=== PATIENT | male | born 1975 | race Caucasian/White ===

== ENCOUNTER 2016-06-10 12:07 | Emergency (ER) | payer OTHER ==
[2016-06-10 12:20] VITALS: BP 150/107
--- NOTE | 2016-06-10 13:00 | UC ---
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 has had problems since. he is also having numbness and tingling in both arms, it gets worse after his shift at work. - History of Current Complaint Chief Complaint: UCRespiratory Stated Complaint: SINUS CONGESTION Time Seen by Provider: 06/10/16 12:18 Hx Obtained From: Patient Onset/Duration: Gradual Onset, Lasting Weeks, Still Present Timing: Constant Onset Severity: Moderate Current Severity: Moderate Pain Intensity: 0 - no pain - Allergy/Home Medications Allergies/Adverse Reactions: Allergies Allergy/AdvReac Type Severity Reaction Status Date / Time No Known Allergies Allergy Verified 03/31/16 08:07 PMH/Surg Hx/FS Hx/Imm Hx Previously Healthy: Yes Endocrine History Of: Denies: Diabetes, Thyroid Disease Cardiovascular History Of: Reports: Hypertension Denies: Cardiac Disorders, Pacemaker/ICD Respiratory History Of: Denies: COPD, Asthma GI/ History Of: Denies: Ulcer - Surgical History Surgical History: None - Family History Known Family History: Positive: Hypertension, Other - Cancers - include breast - Social History Alcohol Use: Weekly Substance Use Type: None Smoking Status (MU): Light Every Day Tobacco Smoker Type: Cigarettes Amount Used/How Often: 1/3 PPD Have You Smoked in the Last Year: Yes Household Exposure Type: Cigarettes - Immunization History Most Recent Influenza Vaccination: none Review of Systems Constitutional: Negative Skin: Negative Eyes: Negative ENT: Negative, Other - nasal congestion Respiratory: Negative Cardiovascular: Negative Gastrointestinal: Negative Genitourinary: Negative Motor: Negative Neurovascular: Decreased Sensation Musculoskeletal: Arthralgia, Myalgia Neurological: Negative Psychological: Negative All Other Systems Reviewed And Are Negative: Yes Physical Exam Triage Information Reviewed: Yes Appearance: Well-Appearing, Well-Nourished, Pain Distress Vital Signs: Initial Vital Signs Temp 97.6 F 06/10/16 12:14 Pulse 82 06/10/16 12:14 Resp 18 06/10/16 12:14 BP 150/107 06/10/16 12:14 Pulse Ox 100 06/10/16 12:14 Vital Signs Reviewed: Yes Eye Exam: Normal Eyes: Positive: Conjunctiva Clear ENT Exam: Normal ENT: Positive: Hearing grossly normal, Pharynx normal, Nasal congestion, TMs normal Dental Exam: Normal Neck exam: Normal Neck: Positive: Supple, Nontender, No Lymphadenopathy Respiratory Exam: Normal Respiratory: Positive: Chest non-tender, Lungs clear, Normal breath sounds Cardiovascular Exam: Normal Cardiovascular: Positive: RRR, No Murmur, Pulses Normal Abdominal Exam: Normal Abdomen Description: Positive: Nontender, No Organomegaly, Soft Bowel Sounds: Positive: Present Musculoskeletal: Positive: Strength Intact, ROM Limited @ - bilateral shoulder ext and lat ext limited, causes numbness and tingling - omer test, - tinel test. no increase in symptoms with neck movement Neurological Exam: Normal Neurological: Positive: Alert, Muscle Tone Normal Psychological Exam: Normal Skin Exam: Normal Course/Dx - Course Course Of Treatment: Hx obtained, exam performed, education given on HBP encouraged patient to follow up LU with PCP. educated on proper stretching and body mechanics of the shoulders and forearms. Educated on NEti pot use and allergie medications. medications prescribed. - Differential Dx - Multi-Symptom Provider Diagnoses: thoracic outlet syndrome bilateral. nasal congestion Discharge - Discharge Plan Condition: Stable Disposition: HOME Prescriptions: Cetirizine HCl [Zyrtec Allergy] 10 mg PO DAILY #30 tab Patient Education Materials: Thoracic Outlet Syndrome (ED), Allergies (ED) Forms: *Work Release Referrals: Antwon Harvey MD [Primary Care Provider] - Additional Instructions: Stretching videos: [email or web address] Neti pot - this is a great and effective way to clear out the sinuses, the link to a How To video listed below: [email or web address] Your numbness and tingling is due to the muscle pinching off the nerves. it is reversible with proper stretching and body mechanics. Take the allergy medication daily and follow up if symptoms continue even with the use of neti pot and medications.
== END 2016-06-10 13:08 | disposition home or self-care (01) ==
LOC: UCEAST 12:07
DX: G54.0 Brachial plexus disorders (principal); R09.81 Nasal congestion; F17.210 Nicotine dependence, cigarettes, uncomplicated
CPT/HCPCS: 99212; G0463

== ENCOUNTER 2016-11-02 14:40 | Observation (INO) | payer SELFPAY ==
[2016-11-02] MEDS ORDERED: Aspirin Low Dose CHEW TAB* 81 MG PO ONE (14:57)
[2016-11-02 15:19] LABS: Hematocrit 47 % (42-52); Hemoglobin 15.9 g/dl (14.0-18.0); Mean Corpuscular HGB Conc 34 g/dl (31-36); Mean Corpuscular Hemoglobin 29 pg (27-31); Mean Corpuscular Volume 84 fL (80-94); Mean Platelet Volume 7 um3 (7.4-10.4); Red Blood Count 5.57 10^6/ul (4.0-5.4); Red Cell Distribution Width 14 % (10.5-15); White Blood Count 7.3 10^3/ul (3.5-10.8)
--- NOTE | 2016-11-02 15:31 | RAD ---
INDICATION: Syncope COMPARISON: November 22, 2015 TECHNIQUE: An AP portable view obtained at 1500 hours is submitted. FINDINGS: Bones/Soft Tissues: There are no acute bony findings. Cardiomediastinal: The cardiomediastinal silhouette is normal. Lungs: There are no infiltrates. Pleura: There are no pleural effusions. Other: None IMPRESSION: NORMAL CHEST.
[2016-11-02 15:35] LABS: BUN/Creatinine Ratio 10.3 (8-20); EGFR African American 98.9 (>60); EGFR Non-African American 76.9 (>60); Globulin 3.8 g/dL (2-4); Total Bilirubin 0.8 mg/dL (0.2-1.0); Total Protein 8.8 g/dL (6.4-8.9)
[2016-11-02] MEDS ORDERED: NS 0.9% 1000 ML* 1,000 ML IV ONE (16:10)
--- NOTE | 2016-11-02 16:31 | RAD ---
INDICATION: Seizure COMPARISON: CT brain January 24, 2015 TECHNIQUE: Noncontrast axial source images were acquired from the skull base to the vertex. FINDINGS: Ventricles/sulci: The ventricles and cisterns are normal in size and configuration for age. Brain parenchyma: There is no focal parenchymal finding, evidence of intracranial mass, or intracranial mass effect. Intracranial hemorrhage:None. Extra-axial spaces: There are no abnormal extra axial fluid collections or evidence of extra-axial mass. Calvarium: There is no calvarial fracture or other calvarial abnormality. Scalp: There is no evidence of scalp or extracalvarial soft tissue abnormality. Paranasal sinuses/mastoid: The paranasal sinuses and mastoid air cells are clear. Other: None. IMPRESSION: NO ACUTE INTRACRANIAL FINDINGS
[2016-11-02 17:56] LABS: Urine Bacteria Absent (Absent); Urine Bilirubin Negative (Negative); Urine Glucose Negative (Negative); Urine Nitrite Negative (Negative)
[2016-11-02 18:11] LABS: Benzodiazepine Urine Screen None Detected (None Detect)
[2016-11-02] MEDS ORDERED: Metoprolol Tartrate IV* 1 MG/ML 5 ML VIAL IV ONE (20:09)
[2016-11-02] MEDS ORDERED: Ondansetron INJ* 2 MG/ML VIAL IV PRN (20:33)
[2016-11-02] MEDS ORDERED: Acetaminophen TAB* 325 MG PO PRN (20:33)
[2016-11-02] MEDS ORDERED: Thiamine IV* 100 MG, Folic Acid IV* 1 MG, Multiple Vitamin IV ADULT* 10 ML in NS 0.9% 1... IV ONE (20:33)
[2016-11-02] MEDS ORDERED: LORazepam TAB(*) 1 MG PO SCH (21:00)
--- NOTE | 2016-11-03 04:52 | CONS ---
CC: Antwon Harvey MD NEUROLOGY CONSULTATION REPORT: DATE OF CONSULT: 11/02/16 REQUESTING PHYSICIAN: Dr. Mir in the ED. REASON FOR CONSULTATION: Possible seizure. HISTORY OF PRESENT ILLNESS: The patient is a 41-year-old right-handed male who presented with 4 episodes of loss of consciousness or near loss of consciousness during the past 2 days. The first episode happened 2 days ago, on Thursday10/31/16. He was coming back inside after smoking outside the house, he felt lightheaded and that is the last thing he remembers. His heard a thud and when she arrived in a few seconds, he was almost ready to get up. He did not seem confused. There was no loss of bowel or bladder. The second episode happened the next day, on Thursday, when he was in the bathroom and his again heard a thud, she arn to the bathroom and found him face down and unconscious. She called 911 and by the time she was on the phone, the patient came around. The thought it was a good 5 minutes before he regained consciousness, but the patient thinks probably it was less. He saw that his face and clothes were wet , including his face, but does not think that he had lost bladder continence and he was fully clothed at that time. He did not seem to be confused afterwards. By the time EMS arrived, his blood pressure was a bit high, but he refused to go to the hospital. The patient recalls that he went to the bathroom and felt lightheaded, and that is the last thing he remembers. He had 2 more episodes this morning, the first one he was in the kitchen, felt lightheaded, and he went down on his knees but did not loss consciousness. He was able to get up and by the time his arrived, he was relatively okay. He went to the living room and again while he was sitting there, he passed out. He does remember that he felt lightheaded all around these 2 episodes. His daughter mentioned that there was some shaking on his right arm as well when he passed out in the last episode. There was again no bowel or bladder incontinence or tongue biting and no postictal confusion. About an hour after that episode, he also threw up once. The patient mentions that recently, he has been feeling lightheaded frequently, mostly positional, from sitting or lying position to the standing position. He reports being under lots of stress recently. He also has not been eating well in the past few months, for example, in the past week, probably he had eaten only 3 times. He has been drinking at least 6 packs every day and sometimes more. He says that he has been drinking more and more recently because of his ongoing stress. PAST MEDICAL HISTORY: Significant for: 1. Hypertension. However, he has been off blood pressure medications for the past year because of insurance issues. Previously, he has been on hydrochlorothiazide. 2. He recently again has history of anxiety and stress. 3. He has a history of multiple head concussions during football, the last one was about a few years ago (maybe 2007 or 2010- he does not remember exactly) with loss of consciousness. PAST SURGICAL HISTORY: None. SOCIAL HISTORY: The patient currently is unemployed. Previously, he was working in [employer] with repetitive tasks as he mentions. He smokes probably half a pack per day and has recently been increasing smoking. He drinks, as mentioned, probably minimum 6 packs a day. He does not use any drugs. FAMILY HISTORY: Mother has history of hypertension. There is also history of cancer in the family. He is not sure about the health of his siblings. ALLERGIES: No known drug allergies. MEDICATIONS: The patient is currently not on any medications, but as mentioned before, until about a year ago, he was on hydrochlorothiazide for his blood pressure. REVIEW OF SYSTEMS: Complete review of systems was performed and other than what was mentioned above, is positive also for some nausea recently. PHYSICAL EXAMINATION: Blood pressure in the lying position when I saw him first was 174/97 and when I stood him up, the pressures was 168/90. Since he has arrived, the blood pressure has been fluctuating and per records have been 175/110, the highest. Pulse rate is between 80 to 90. Temperature 98.7, O2 sat 100% on room air. The patient is lying on the bed, seems anxious and distressed. Head is normocephalic. He is oriented x3 and speech is fluent. Eyes: He has equal pupils, reactive to light. Extraocular movements are intact. Face is symmetric. Tongue is midline. Palate elevates upwards. Strength is 5/5 throughout. Sensation is intact to light touch and pinprick in the upper and lower extremities. [id number], has a slight tremor, but no dysmetria bilaterally. There is no resting tremor. Deep tendon reflexes are 1 + in the upper extremities and 2+ in the knees and 1+ in the Achilles and are symmetric. Gait is narrow based and steady, but as I mentioned, when he is stood up, he feels lightheaded and slight tremor was seen in his head and upper trunk. Heart has regular rate and rhythm. Lung is clear to auscultation. DIAGNOSTIC STUDIES/LAB DATA: WBC 7.3, hemoglobin 15.9, hematocrit 47, and platelets 381. Sodium 134, potassium 4, carbon dioxide 12, BUN 11, creatinine 1.7, anion gap of 17, lactic acid 2.8, AST 30, ALT 15. Urine has 1+ protein and ketones. Serum alcohol level was 102, otherwise the u-tox is negative. A CT of the head today shows no acute abnormalities. ASSESSMENT AND PLAN: The patient is a 41-year-old male with history of 4 episodes of loss, near loss of consciousness since Thursday. These episodes are preceded by lightheadedness. There was no clear convulsion, other than some right arm shaking witnessed by patient's daughter in the last episode. One of the episodes with loss of consciousness was very short, probably just a few seconds; one of them did not have a complete loss of consciousness; and two of them were associated with longer loss of consciousness for a few minutes per his . The history is more consistent with pre-syncope and syncope other than the loss of consciousness was a bit longer as what is expected in syncope in 2 of the episode. There was no clear loss of bladder or bowel control or post-ictal confusion. I have a very low suspicion for these episodes being a primary seizure problem. Considering the patient's orthostatic symptoms, as well as his uncontrolled blood pressure, this might be in the setting of hypertensive urgency, although while in the ED he did not have any measurement of more than systolic of 220 mmHg and diastolic above 120 mmHg. Recommend cardiac monitoring and control of his blood pressure. If he stays in the hospital, probably an EEG and MRI brain would be helpful to rule out other possibilities, but as I mentioned, I do not have a high suspicion for these episodes being neurologically triggered. He may be also going through some mild alcohol withdrawal at this time with the mild tremor that is seen on exam. Time spent at the bedside at least 60 minutes. [id number]/[facility] #: [id number] GENEVIEVE
[2016-11-03 05:49] LABS: Hematocrit 43 % (42-52); Hemoglobin 14.2 g/dl (14.0-18.0); Mean Corpuscular HGB Conc 33 g/dl (31-36); Mean Corpuscular Hemoglobin 28 pg (27-31); Mean Corpuscular Volume 86 fL (80-94); Mean Platelet Volume 8 um3 (7.4-10.4); Red Blood Count 5.01 10^6/ul (4.0-5.4); Red Cell Distribution Width 14 % (10.5-15); White Blood Count 4.3 10^3/ul (3.5-10.8)
[2016-11-03 06:10] LABS: BUN/Creatinine Ratio 12.8 (8-20); Calcium 9.5 mg/dL (8.6-10.3); EGFR African American 89.3 (>60); EGFR Non-African American 69.4 (>60); HDL Cholesterol 45.7 mg/dL
[2016-11-03 06:42] LABS: Potassium 3.9 mmol/L (3.5-5.0)
--- NOTE | 2016-11-03 07:20 | HP ---
CC: Dr. Harvey* HISTORY AND PHYSICAL: DATE OF ADMISSION: 11/02/16 PRIMARY CARE PROVIDER: Dr. Harvey. ATTENDING PHYSICIAN WHILE IN THE HOSPITAL: Dr. Caleb Lang* (report dictated by Dave Sharma NP) CHIEF COMPLAINT: Syncope. HISTORY OF PRESENT ILLNESS: Mr. Mandujano is a 41-year-old male patient, carries a history of hypertension, he does limit taking his blood pressure meds for the last couple of months due to being unable to afford his medications. He does state that yesterday he had two episodes where he fell, he got up, changing positions felt lightheaded and he fainted, happened twice. He had one episode of vomiting after one of these episodes. His called the ambulance last night and he refused to come in. He denies having any chest pain. He denied having any shortness of breath. Denied having any abdominal pain. Currently, denied any chest pain prior to or after these events. There have been no fevers or chills. No cough. No abdominal discomfort and he did state that he did not hit his head that he can recall. He had an episode today where he fainted and his daughter actually heard the episode according him, but one thing he remembers is they got up, wanted to get off his couch, he felt dizzy, he went down, his daughter called his , and they did note that his left arm was shaking but when he came to he knew where he was, he recognized his , recognized his daughter. They were concerned because it is the fourth time it happened in 2 days and they called 911. There has been no prodrome symptom, the only symptom he had was when change position he felt dizzy. He did start taking his blood pressure meds two months ago and he does state that he has been drinking a little bit more heavily, he is under a lot of stress too as he is going through a separation with his . There was concern, he came in to the ER, was evaluated by Dr. Mir. Because of the syncope, the hospitalist service was asked to evaluate for admission. PAST MEDICAL HISTORY: Significant for hypertension. PAST SURGICAL HISTORY: Denied. ALLERGIES TO MEDICATIONS: No known drug allergies. HOME MEDICATIONS: He is supposed to be taking his hydrochlorothiazide one tablet daily, but he has not taken in 2 months. FAMILY HISTORY: Mother had a history of valvular heart disease, cancer, and hypertension. Father's history is reviewed and is no unknown. He is incarcerated. SOCIAL HISTORY: He is a half a pack a day smoker. He does drink, almost on a daily basis, drinks about a 6-pack at a time when he does drink. He does not use recreational drugs. He is . Surrogate decision maker is his . REVIEW OF SYSTEMS: There is no documented fever. He denied having any significant weight change. There was no double vision. He denies having any ear discharge. There was no rhinorrhea. No sore throat. No thyroid enlargement. Denied having any chest pain. There was no orthopnea. There is no nocturnal dyspnea. There is no abdominal pain. There was one episode of nausea with vomiting. No dysuria. No frequency. There was loss of consciousness. No pruritus. No skin ulcerations. Review of 14 systems completed, all others negative. PHYSICAL EXAMINATION GENERAL: At this time, Mr. Mandujano is a 41-year-old male patient, appears well nourished, well developed. He is sitting in the ER stretcher. He does not appear to be in any acute distress. VITAL SIGNS: Blood pressure 145/72, pulse 90, respirations 20, O2 sats 96%, temperature 99.1. HEENT: Head atraumatic, normocephalic. Eyes: EOMs are intact. Sclerae anicteric and not pale. Throat: Oral mucosa appears to be moist. No oropharyngeal erythema. NECK: Supple. HEART: Sounds S1 and S2. Regular rate and rhythm. No murmur, rubs, or gallops. LUNGS: Clear to auscultation bilaterally. No wheezes, rales, or rhonchi. ABDOMEN: Soft, flat, nontender. Bowel sounds present. EXTREMITIES: Pulses 2+ throughout, was able to move all 4 extremities, 5/5 strength. NEUROLOGIC: The patient is awake, alert, he is oriented x3. Tongue midline. His correspondence analyst were equal. No gross focal deficits. SKIN: Intact. LABORATORY DATA/DIAGNOSTIC STUDIES: Today, revealed WBC of 7.3, RBC of 5.57, hemoglobin of 15.9, hematocrit of 47, platelet count 281. Sodium was 134, potassium 4.0, chloride 97, bicarbonate was 20, BUN was 11, creatinine 1.07. Glucose 77, lactic 2.8, calcium 10.0, total bilirubin 0.8, AST 13, ALT 15, alk phos 35. CK was 183, troponin 0, repeat troponin was 0. Procalcitonin less than 1. Urine showed 1+ protein, 1+ ketone. Toxicology was positive for alcohol 102. He did have a brain CT obtained today and a chest x-ray. The chest x-ray showed normal chest. Brain CT showed no acute intracranial process. There was an EKG, which revealed normal sinus rhythm, rate of 91, no ST elevations or T wave inversions were noted. Old medical records reviewed. ASSESSMENT AND PLAN: Mr. Mandujano is a 41-year-old male patient coming in to the ER today with complaints of syncopal episodes twice today and twice yesterday with no prodrome and just feeling lightheaded particularly with position changes. He will be admitted on observation status for: 1. Syncope, etiology is unclear, but I do think he needs really some telemetry monitoring overnight and echo. I will repeat another troponin. We will check a D- dimer. I do not think he has a PE, but again if it does not resolve, I will get a CTA. We will go ahead and get an echo in the morning, telemetry, orthostatics blood pressures, and we will continue to follow. 2. Hypertension, at this point blood pressure is in the 140s, we will monitor this. If it remains persistently elevated we can consider starting him back on his hydrochlorothiazide or some Norvasc. 3. Social issues, I did refer to place a consult with social work given the fact he is going through a separation. He is under stress, in addition to this he is unable to afford his medication. 4. DVT prophylaxis: He is at low risk. We will place him on SCDs. 5. Code status: Full code. 6. ETOH use: I did place him on the [place] protocol. I am going to give him a banana bag. TIME SPENT: Time spent on the admission was approximately 60 minutes, greater than half the time was spent [id number] with the patient obtaining my history and physical, other half of the time was spent going over the plan of care with the patient and implementing the plan of care. I did discuss the plan of care with my attending, Dr. Lang, he is in agreement. DAVE SHARMA NP [id number]/[facility] #: [id number] GENEVIEVE
[2016-11-03 08:35] VITALS: BP 149/90
[2016-11-03] MEDS ORDERED: amLODIPine TAB* 5 MG PO SCH (09:00)
[2016-11-03] MEDS ORDERED: Thiamine TAB* 100 MG TAB PO SCH (09:00)
[2016-11-03] MEDS ORDERED: Folic Acid TAB* 1 MG PO SCH (09:00)
[2016-11-03] MEDS ORDERED: Multivitamins/Minerals TAB PO SCH (09:00)
--- NOTE | 2016-11-03 10:48 | RAD ---
HISTORY: Recurrent syncope COMPARISONS: CT dated November 02, 2016 TECHNIQUE: The following sequences were obtained of the head: Sagittal T1-weighted images, axial T2-weighted images, axial FLAIR images, axial susceptibility weighted images, axial T1-weighted images. Additionally, axial diffusion-weighted images were obtained with calculated apparent diffusion coefficients. FINDINGS: HEMORRHAGE/INFARCT: There is no hemorrhage or acute infarct. MASSES/SHIFT: There is no mass or shift. EXTRA-AXIAL SPACES/MENINGES: There are no extra-axial fluid collections. SULCI AND VENTRICLES: The sulci and ventricles are normal in size and position for the patient's stated age. CEREBRUM: There are no focal parenchymal abnormalities. BRAINSTEM: There are no focal parenchymal abnormalities. CEREBELLUM: There are no focal parenchymal abnormalities. The cerebellar tonsils are normal in size and position. SELLA: The sella is normal. PINEAL: The pineal region is clear. CP ANGLE/TEMPORAL BONES: The labyrinthine structures are grossly normal. VESSELS: Normal flow-voids are noted within the visualized vertebral vasculature. DIFFUSION ABNORMALITIES: There are no diffusion abnormalities. PARANASAL SINUSES/MASTOIDS: The paranasal sinuses are clear. ORBITS: The orbits are unremarkable. BONES AND SOFT TISSUE: No bone or soft tissue abnormalities are noted. OTHER: None IMPRESSION: NORMAL BRAIN
--- NOTE | 2016-11-03 13:35 | PN ---
PROGRESS NOTE: DATE OF SERVICE/DICTATION: 11/03/16 - ROOM #443 HISTORY OF PRESENT ILLNESS: Roverto Mandujano is a 41-year-old gentleman admitted to hospital after 4 episodes of loss of consciousness starting on January 31. This occurs in the setting of excessive alcohol intake and decreased p.o. intake. He was seen by Dr. Schroeder in consultation. On today's visit, Mr. Mandujano indicates that he has had no further episodes, he feels back to his baseline. He admits that he drinks more beer than water. He estimates about a 6-pack approximately 3 to 4 days a week and indicates he would drink more if he could. He indicates that he drank more in the past and he first started drinking at age 17, when his stepfather had alcohol around the house. He admits he has a problem and would like to stop drinking. He is yet to go to Alcoholics Anonymous. He had thought about going through rehab, but did not have insurance. He has had an MRI of the brain and we discussed the results on today's visit, no pathology was noted. EEG was being set up at the time of visit. MEDICATIONS: Include: 1. Acetaminophen 650 mg p.o. q.4 hours p.r.n. fever or pain. 2. Norvasc 5 mg p.o. q. day. 3. Folate 1 mg p.o. q. day. 4. Ativan per [facility] protocol. 5. Multivitamin 1 tablet p.o. q. day. 6. Ondansetron 4 mg IV q.6 hours p.r.n. nausea. 7. Thiamine 100 mg p.o. q. day. PHYSICAL EXAMINATION: Today, Mr. Mandujano's vitals include blood pressure of 149/90; pulse of 75, regular; respiratory rate 16; saturation 98%; temperature 98.2 degrees oral. He had a regular cardiac rhythm. His lungs were clear to auscultation. There was no evidence of peripheral edema or petechiae. No bruises were noted. He was awake, alert, articulate. He had full extraocular movements with no nystagmus. His facial expression was symmetric. There was no dysarthria. There was no pronator drift. He gave good strength in his arms and legs. Normal emesic-cd-okpx and nyio-pq-gxkd movements. Reflexes were 2+ and symmetric in the arms and legs. Gait could not be tested; he was hooked up to EEG. DIAGNOSTIC STUDIES: Includes MRI of the brain, which was reviewed directly and did not show any significant pathology. IMPRESSION AND PLAN: Mr. Roverto Mandujano is a 41-year-old gentleman with repeat episodes of loss of consciousness in the setting of significant alcohol intake and decreased p.o. intake. He is also been off his hypertensive medications due to lack of insurance. He had seen Dr. Harvey before in the past. At this time, no clear history was obtained to suggest epilepsy. We are checking EEG to double check, and I will review that tracing as soon as it is complete. His MRI is negative. Most likely his loss of consciousness was related to his alcohol intake and decreased p.o. intake. He has been restarted on medications for blood pressure. Mr. Mandujano indicates that he does have an alcohol problem. It is good to see that he realizes this and I have talked with him about the importance of Alcoholics Anonymous, the damage that alcohol can do to many organs including brain and peripheral nerves. Clearly this has been an issue for him in his life and affecting him in many ways. Social Work is to see him regarding opportunities for him in alcohol counseling. I spoke to Dr. Mayfield, who has already spoken directly to Social Work regarding the situation. As long as his EEG is negative, no other neurologic workup is needed at this time. Emphatically, the patient has been advised to completely stop drinking alcohol. [id number]/[facility] #: [id number] GENEVIEVE
--- NOTE | 2016-11-03 14:32 | ECHO ---
Patient: RASTA TURNER [facility] Rec#: [id number] : 1975 Date: 11/03/2016 Age: 41y Height: 185.4 cm / 73.0 in Weight: 99.8 kg / 220.0 lbs Sex: M BSA: 2.2 Room#: [facility] Admit Date#: 11/02/2016 Type: Inpatient Referring: Jayson Sharma NP Reading: Jeferson Martin MD Paper Colorer: Sis Zapien RN RDCS CC: Antwon Harvey MD Transthoracic Echocardiogram Indication: Syncope BP: 154/95 HR: 77 Rhythm: NSR Findings History: HTN, anxiety, smoker Technical Comments: The study quality is fair. The study is technically limited due to patient body habitus. The study is technically limited due to the patient's smoking history. Completed at 1005. Left Ventricle: The left ventricular chamber size is normal. Septal wall hypertrophy is observed. Global left ventricular wall motion and contractility are within normal limits. There is normal left ventricular systolic function. The estimated ejection fraction is 55-60%. There is no consistent Doppler evidence of clinically significant diastolic dysfunction. Left Atrium: The left atrial chamber size is normal. Right Ventricle: The right ventricular chamber size and systolic function are within normal limits. Right Atrium: The right atrial cavity size is normal. Aortic Valve: The aortic valve is trileaflet. The aortic valve leaflets are mildly thickened. There is no evidence of aortic regurgitation. There is no evidence of aortic stenosis. Mitral Valve: The mitral valve leaflets are mildly thickened. There is no evidence of mitral regurgitation. There is no evidence of mitral stenosis. Tricuspid Valve: The tricuspid valve leaflets are normal. There is trace tricuspid regurgitation. Unable to estimate the right ventricular systolic pressure. Pulmonic Valve: The pulmonic valve appears normal. There is a trace pulmonic regurgitation. There is no pulmonic stenosis. Pericardium: There is no significant pericardial effusion. A pericardial fat pad is visualized. Aorta: There is no dilatation of the ascending aorta. There is no dilatation of the aortic arch. There is mild dilatation of the aortic root. Pulmonary Artery: The main pulmonary artery appears normal. Venous: The inferior vena cava is not visualized. Conclusions Global left ventricular wall motion and contractility are within normal limits. There is normal left ventricular systolic function. The estimated ejection fraction is 55-60%. The right ventricular chamber size and systolic function are within normal limits. The aortic valve leaflets are mildly thickened. There is no evidence of aortic regurgitation. There is no evidence of mitral regurgitation. There is trace tricuspid regurgitation. Unable to estimate the right ventricular systolic pressure. There is no significant pericardial effusion. Measurements Name Value Normal Range RVDdMajor (2D) 4.2 cm (2.2 - 4.4) RAd ISD 4CH 4.7 cm (3.4 - 4.9) RA (A4C)W 4.1 cm (2.9 - 4.6) IVSd (2D) 1.3 cm (0.6 - 1) LVPWd (2D) 0.9 cm (0.6 - 1) LVIDd (2D) 4.7 cm (3.6 - 5.4) LVIDs (2D) 3 cm - LV FS (2D) 36 % (25 - 45) Aortic Annulus 2.4 cm (1.4 - 2.6) Ao root diameter (2D) 3.6 cm (2.1 - 3.5) Ascending Ao 3 cm (2.1 - 3.4) Aortic arch 2.9 cm (1.8 - 3.4) LA dimension (AP) 2D 3 cm (2.3 - 3.8) LAd ISD 4CH 4.5 cm (2.9 - 5.3) LA ISD 4CH W 4 cm (2.5 - 4.5) Name Value Normal Range LA ESV SP 4CH (A/L) 43 ml - LA ESV SP 2CH (A/L) 43 ml - LA ESV BP (A/L) 43 ml - LA ESV BP (A/L) index 19.1 ml/m2 - LA ESV SP 4CH (MOD) 41 ml - LA ESV SP 2CH (MOD) 40 ml - Name Value Normal Range MV E-wave Vmax 0.73 m/sec - MV deceleration time 277 msec - MV A-wave Vmax 0.72 m/sec - MV E:A ratio 1 ratio - LV septal e' Vmax 0.09 m/sec - LV lateral e' Vmax 0.13 m/sec - LV E:e' septal ratio 8.1 ratio - LV E:e' lateral ratio 5.6 ratio - Name Value Normal Range AV Vmax 1.5 m/sec - AV VTI 28.4 cm - AV peak gradient 9 mmHg - AV mean gradient 5.7 mmHg - LVOT Vmax 1.3 m/sec - LVOT VTI 24 cm - LVOT peak gradient 6.4 mmHg - LVOT mean gradient 3.3 mmHg - ALYSSA Vmax 0.88 m/sec - Name Value Normal Range PV Vmax 0.89 m/sec -
--- NOTE | 2016-11-04 05:34 | EEG ---
ELECTROENCEPHALOGRAPHY: DATE OF STUDY: CLINICAL PROBLEM: Mr. Roverto Mandujano is a 41-year-old gentleman who was admitted with 4 episodes of loss of consciousness with prodrome of lightheadedness. EEG was requested to look for epileptifo rm activity. REPORT: This was a 16-channel EEG. In the beginning of the record, there was a posterior dominant 10 Hz alpha rhythm, which was symmetric and attenuated with eye opening. As the record continued, the background rhythm remained symmetric. Intermittently, there was moveme nt artifact. Before and after the movement artifact, there was no change in the background rhythm. With time, there was fragmentation of the alpha rhythm with drowsiness and eventually evidence of st age 2 sleep with vertex waves. Throughout the record, there was no significant asymmetry to the background rhythm. There was no janes dence of sharp wave activity. CLINICAL IMPRESSION: This is a normal awake and asleep EEG. There was no evidence of epileptiform activity. [id number]/[facility] #: [id number]
--- NOTE | 2016-11-04 08:56 | DS ---
CC: Dr. Harvey; Dr. Dominique; Dr. Schroeder DISCHARGE SUMMARY: DATE OF ADMISSION: 11/02/16 DATE OF DISCHARGE: 11/03/16 PRIMARY CARE PHYSICIAN: Dr. Harvey DISCHARGE DIAGNOSIS: Recurrent syncope, most likely to alcohol use and not eating well in patient with mild hypoglycemia on evaluation initially. SECONDARY DIAGNOSES: 1. Alcoholism. 2. Hypertension. MEDICATIONS ON DISCHARGE: Norvasc 5 mg p.o. daily. LABORATORY DATA AND STUDIES PERFORMED DURING THE HOSPITAL STAY: Included: On ; white blood cell count of 4.3, hemoglobin of 14.2, hematocrit of 42, and platelets of 226. D-dimer was below 200 on presentation. Sodium was 135, potassium 3.9, chloride 98, carbon dioxide 24, BUN 15, creatinine 1.17, glucose with a level of 77 on presentation. The patient's troponin was negative on admission. Urine drug screen was unremarkable at admission with an alcohol level of 102. Brain MRI, impression: "Normal brain." Transesophageal echocardiogram obtained on 11/02/16 showed EF of 55% to 60% with left ventricular wall motion and contractility to be within normal limits. There was trace tricuspid regurgitation and no significant pericardial effusion. CONSULTATIONS DURING THE HOSPITAL STAY: Included Dr. Schroeder and Dr. Marc from Neurology. HOSPITALIZATION COURSE: Mr. Roverto Mandujano is a 41-year-old male with history of alcoholism. He had been drinking ever since he turned 17, approximately 6 to 12 beers a day. He presented to the hospital on 11/02/16 with recurrent episodes of syncope for the past couple of days. He was noted to have glucose level of 77 on presentation, alcohol level of 102. With recurrent episodes of syncope, Neurology was consulted, MRI of the brain , which was unremarkable. The patient's transesophageal echocardiogram was also unremarkable and his telemetry monitoring for 24 hours showed normal sinus rhythm. Prior to discharge, the patient received counseling in regards to stopping alcohol use and good nutrition. The patient stated that he had not been eating for the past several days and he had been drinking beers only. He stated that he is currently not working and he is in the process of divorce, but still living with his spouse. The patient was discharged. The patient is awaiting social work consult in regards to acquiring insurance coverage and alcoholism. PHYSICAL EXAMINATION: At the time of discharge, blood pressure of 149/90, heart rate of 75, respiratory rate 15, oxygen saturation 98% on room air, temperature of 98.2. General: This is a pleasant 41-year-old male who is in no acute distress. Alert, awake and oriented x3. HEENT: Head is atraumatic, normocephalic. Eyes: Pupils equal and reactive to light and accommodation. Oropharynx clear. Mucosa moist. Neck: Supple. No JVD. No bruits bilaterally. Cardiovascular: Regular rate and rhythm. No murmurs. Respiratory: Clear to auscultation bilaterally. Abdomen: Soft, nontender. Bowel sounds present in all 4 quadrants. Extremities: There is no edema. Pulses +2 bilaterally. No clubbing or cyanosis. Neuro evaluation: Speech clear. Cranial nerves II through XII grossly intact. Motor strength is 5/5 bilaterally. Please note that prior to each syncopal event in the past 2 days, the patient did have prodromal symptoms of feeling lightheaded and weak. The patient recommended to follow up with Dr. Harvey in approximately 4 to 7 days. [id number]/[facility] #: [id number] [facility] CENTERJune
--- NOTE | 2016-11-09 23:23 | ED ---
Gary Tineo Auryana, scribed for John Mir MD on 11/02/16 at 1626 . Syncope/Near Syncope - HPI Summary HPI Summary: 41 year old male presents multiple episodes of syncope over the last 3 days. reports that he has had 2 syncopal episodes today - total of 4 over the last 3 days. reports that after these episodes he typically takes a few minutes to wake up. also reports that her daughter reports abnormal arm movement. Yesterday's episode was accompanied by Urinary incontinence. He reports feeling weak, dizzy, and diaphoretic-then remembers getting up from the floor. He reports changes in appetite, decreased sleep, and eating habits due to stress - recent separation from and kids. He denies any fever, chills, CP, SOB, HINTON, or any SI. He has had prior episodes of lightheadedness and dizziness but no syncope. PMHx is significant for HTN. No family history of seizures. SHx is significant for alcohol (2-3 drinks a day - big cans), but denies tobacco and recreational drug use. - History Of Current Complaint Chief Complaint: EDSyncope Time Seen by Provider: 11/02/16 14:53 Hx Obtained From: Patient Onset/Duration: Gradual Onset, Lasting Days - 3, Still Present Timing: Constant Context: Unwitnessed, Witnessed, Loss Of Consciousness Activity At Onset: Other - daily activities Alleviating Factor(s): Spontaneous Resolution Associated Signs And Symptoms: Diaphoresis, Dizzy, Other - weak Related History: Similar Episode/Dx as - no history of seizures Frequency: Episodes x___ - 4, Episodes Lasting ____ (in Mins/Days/Weeks/Years) - 5 minutes, Ongoing Incidents Of Syncope For (in Mins/Days/Weeks/Years) - 4 episodes in the last 3 days - Allergies/Home Medications Allergies/Adverse Reactions: Allergies Allergy/AdvReac Type Severity Reaction Status Date / Time No Known Allergies Allergy Verified 03/31/16 08:07 PMH/Surg Hx/FS Hx/Imm Hx Endocrine/Hematology History: Denies: Hx Diabetes, Hx Thyroid Disease Cardiovascular History: Reports: Hx Hypertension Denies: Hx Pacemaker/ICD Respiratory History: Denies: Hx Asthma, Hx Chronic Obstructive Pulmonary Disease (COPD) GI History: Denies: Hx Ulcer Sensory History: Denies: Hx Hearing Aid Psychiatric History: Denies: Hx Eating Disorder, Hx Panic Disorder, Hx of Violent Episodes Against Others Infectious Disease History: No Infectious Disease History: Denies: Hx Hepatitis, Hx Human Immunodeficiency Virus (HIV), History Other Infectious Disease, Traveled Outside the [place] in Last 30 Days - Family History Known Family History: Positive: Hypertension, Other - Cancers - include breast - Social History Lives: With Family Alcohol Use: Weekly Substance Use Type: Reports: None Hx Tobacco Use: Yes Smoking Status (MU): Light Every Day Tobacco Smoker Type: Cigarettes Amount Used/How Often: 1/3 PPD Have You Smoked in the Last Year: Yes Review of Systems Positive: Skin Diaphoresis, Other - DIZZINESS AND WEAKNESS BEFORE THE EPISODES. Negative: Fever, Chills Eyes: Negative Negative: Erythema ENT: Negative Negative: Sore Throat Cardiovascular: Negative Negative: Chest Pain Respiratory: Negative Negative: Shortness Of Breath, Cough Gastrointestinal: Negative Negative: Abdominal Pain, Vomiting, Nausea Positive: incontinence - WITH PREVIOUS SYNCOPE . Negative: dysuria, hematuria Musculoskeletal: Negative Negative: Myalgia, Edema Skin: Negative Negative: Rash Positive: Syncope Psychological: Normal All Other Systems Reviewed And Are Negative: Yes Physical Exam - Summary Physical Exam Summary: Constitutional: Well-developed, Well-nourished, Alert. (-) Distressed Skin: Warm, Dry HENT: Normocephalic; Atraumatic Eyes: Conjunctiva normal Neck: Musculoskeletal ROM normal neck. (-) JVD, (-) Stridor, (-) Tracheal deviation Cardio: Rhythm regular, rate normal, Heart sounds normal; Intact distal pulses; The pedal pulses are 2+ and symmetric. Radial pulses are 2+ and symmetric. (-) Murmur Pulmonary/Chest wall: Effort normal. (-) Respiratory distress, (-) Wheezes, (-) Rales Abd: Soft, (-) Tenderness, (-) Distension, (-) Guarding, (-) Rebound Musculoskeletal: (-) Edema Lymph: (-) Cervical adenopathy Neuro: Alert, Oriented x3 Psych: Mood and affect Normal Triage Information Reviewed: Yes Vital Signs On Initial Exam: Initial Vitals Temp Pulse Resp BP Pulse Ox 99.1 F 96 18 158/106 96 11/02/16 14:40 11/02/16 14:40 11/02/16 14:40 11/02/16 14:40 11/02/16 14:40 Vital Signs Reviewed: Yes Diagnostics - Vital Signs Vital Signs Temp Pulse Resp BP Pulse Ox 11/02/16 14:40 99.1 F 96 18 158/106 96 - Laboratory Result Diagrams: 11/02/16 15:11 11/02/16 15:11 Lab Statement: Any lab studies that have been ordered have been reviewed, and results considered in the medical decision making process. - Radiology CXR Xray Interpretation: No Acute Changes Radiology Interpretation Completed By: Radiologist - CT BRAIN CT Interpretation: No Acute Changes CT Interpretation Completed By: Radiologist - EKG 15:06 EKG Interpretation: Normal EKG, no STEMI Re-Evaluation - Re-Evaluation First Eval Re-Evaluation Time: 18:55 - discussed recommendations of Dr. Schroeder Comment: Patient refused both EEG nad MRI . Juliet also admits to drinking on the days that he had a seizure - thus I do not suspect alcohol withdrawal. Second Eval Re-Evaluation Time: 20:02 - WILL LET ED PHYSICIAN KNOW IF HE IS WILL TO STAY Course/Dx Course Of Treatment: 41 year old male presents multiple episodes of syncope over the last 3 days. reports that he has had 2 syncopal episodes today - total of 4 over the last 3 days. reports that after these episodes he typically takes a few minutes to wake up. also reports that her daughter reports abnormal arm movement. Yesterday's episode was accompanied by Urinary incontinence. He reports feeling weak, dizzy, and diaphoretic-then remembers getting up from the floor. He reports changes in appetite, decreased sleep, and eating habits due to stress - recent separation from and kids. He denies any fever, chills, CP, SOB, HINTON, or any SI. He has had prior episodes of lightheadedness and dizziness but no syncope. PMHx is significant for HTN. No family history of seizures. SHx is significant for alcohol (2-3 drinks a day - big cans), but denies tobacco and recreational drug use. Test results WNL except RBC 5.57, ANION GAP 17, LACTIC ACID 2.8, troponin 0.00. NML LFTs. Serum ETOH 102. UA 1+ protein, 1+ ketones. CXR- NAD. EKG - nml ekg- no stemi. CT brain - NAD. Consult to Dr. Schroeder (18:48)- recommended EEG and MRI. Patient refused both EEG and MRI . Juliet also admits to drinking on the days that he had a seizure - thus I do not suspect alcohol withdrawal. DDx: seizures , pseudoseizures, ptyosis, drug abuse, alcohol abuse, electrolyte abnormality. DR. IBRAHIM (08:12) HOSPITALIST AGREES TO SEE PATIENT IN ED- ADMIT TO [facility] [place]. DX: SYNCOPE, SYNCOPAL SEIZURE, ALCOHOLISM - Diagnoses Differential Diagnosis/HQI/PQRI: Positive: Other - DDx: seizures, pseudoseizures , ptyosis, drug abuse, alcohol abuse, electrolyte abnormality Provider Diagnoses: Syncopal seizure, Syncope, Alcoholism - Physician Notifications Discussed Care of Patient With: Dillon Schroeder Time Discussed With Above Provider: 18:49 - recommended EEG and MRI Discharge - Discharge Plan Condition: Stable Disposition: ADMITTED TO [facility] The documentation as recorded by the Gary nunn Auryana accurately reflects the service I personally performed and the decisions made by me, John Mir MD.
== END 2016-11-03 13:27 | disposition home or self-care (01) ==
LOC: ED 14:40 → MEDTELE 20:58
PROVIDERS: ADMIT Hospitalist; ATTEND Internal Medicine
DX: R55 Syncope and collapse (principal); E16.2 Hypoglycemia, unspecified; F10.20 Alcohol dependence, uncomplicated; I10 Essential (primary) hypertension; F17.210 Nicotine dependence, cigarettes, uncomplicated
CPT/HCPCS: 36415; 70450; 70551; 71010; 80048; 80053; 80061; 80307; 80320; 81003; 81015; 82550; 83036; 83605; 84145; 84484; 85025; 85379; 93005; 93306; 95816; 96365; 96366; 96375; 99285; A9270-GY; G0378; G0480

== ENCOUNTER 2017-07-19 12:01 | Emergency (ER) | payer MEDICAID, OTHER ==
[2017-07-19 13:14] VITALS: BP 155/110
--- NOTE | 2017-07-19 13:25 | UC ---
FLU HPI - HPI Summary HPI Summary: His son came home from college this week with flulike symptoms seen his primary care doctor on diagnosed with the flu Mr. Mandujano came down the symptoms on Thursday night Thursday morning of body aches fevers chills sore throat cough. Mr. Mandujano states he has not taken his blood pressure medicine for the past 3 days until this morning when he just took 1 hour ago prior to arrival to the urgent care - History of Current Complaint Chief Complaint: UCGeneralIllness Stated Complaint: FLU SYMPTOMS Time Seen by Provider: 07/19/17 13:02 Hx Obtained From: Patient Onset/Duration: Sudden Onset, Lasting Days - 1-2, Still Present Severity Currently: Mild Severity Initially: Mild Pain Intensity: 3 Pain Scale Used: 0-10 Numeric Associated Signs & Symptoms: Positive: Fever, Myalgia, Cough, Sore Throat, Nasal Congestion, Headache Related Hx: Possible Flu/Infectious Exposure - Allergy/Home Medications Allergies/Adverse Reactions: Allergies Allergy/AdvReac Type Severity Reaction Status Date / Time No Known Allergies Allergy Verified 07/19/17 13:00 Home Medications: Home Medications Atorvastatin* [Lipitor*] 10 mg PO DAILY 07/19/17 [History Confirmed 07/19/17] Blood Pressure Med 07/19/17 [History] PMH/Surg Hx/FS Hx/Imm Hx Previously Healthy: No Endocrine History: Dyslipidemia Cardiovascular History: Hypertension - Surgical History Surgical History: None - Family History Known Family History: Positive: Hypertension, Other - Cancers - include breast - Social History Occupation: Employed Full-time - Patient last started a job at [employer] on Thursday in 2 days Alcohol Use: Weekly Substance Use Type: None Smoking Status (MU): Heavy Every Day Tobacco Smoker Type: Cigarettes Amount Used/How Often: 1 PPD Have You Smoked in the Last Year: Yes Household Exposure Type: Cigarettes - Immunization History Most Recent Influenza Vaccination: no flu vaccine in 2016 2017 Review of Systems Constitutional: Fever, Chills, Fatigue Skin: Negative Eyes: Negative ENT: Sore Throat, Ear Ache, Nasal Discharge, Sinus Congestion Respiratory: Cough Cardiovascular: Negative Gastrointestinal: Negative Genitourinary: Negative Motor: Negative Neurovascular: Negative Musculoskeletal: Myalgia Neurological: Headache Psychological: Negative Is Patient Immunocompromised?: No All Other Systems Reviewed And Are Negative: Yes Physical Exam Triage Information Reviewed: Yes Appearance: No Pain Distress - Mild, Well-Nourished, Ill-Appearing - Mild Vital Signs: Initial Vital Signs Temp 97.5 F 07/19/17 13:07 Pulse 96 07/19/17 13:07 Resp 16 07/19/17 13:07 BP 155/110 07/19/17 13:07 Pulse Ox 99 07/19/17 13:07 Vital Signs Reviewed: Yes Eye Exam: Normal Eyes: Positive: Conjunctiva Clear ENT Exam: Normal ENT: Positive: Normal ENT inspection, Hearing grossly normal, Pharynx normal, Nasal congestion, TMs normal, Uvula midline. Negative: Trismus, Muffled voice, Hoarse voice, Dental tenderness, Sinus tenderness Dental Exam: Normal Neck exam: Normal Neck: Positive: Supple, Nontender Respiratory Exam: Normal Respiratory: Positive: Chest non-tender, Lungs clear, Normal breath sounds, No respiratory distress, No accessory muscle use Cardiovascular Exam: Normal Cardiovascular: Positive: RRR, No Murmur, Pulses Normal, Brisk Capillary Refill Musculoskeletal Exam: Normal Musculoskeletal: Positive: Strength Intact, ROM Intact, No Edema Neurological Exam: Normal Neurological: Positive: Alert, Muscle Tone Normal Psychological Exam: Normal Skin Exam: Normal Diagnostics - Laboratory Diagnostic Studies Completed/Ordered: Rapid strep is negative influenza A is negative influenza B is negative Flu Course/Dx - Course Course Of Treatment: Rest increase fluids Tylenol ibuprofen [id number] cough and cold medicines for symptom relief follow with primary care doctor should symptoms not improve to the emergency department should symptoms worsen recheck blood pressure with primary care doctor next week take blood pressure medicine regularly as prescribed - Differential Dx/Diagnosis Provider Diagnoses: Hypertension in poor control, viral illness upper respiratory infection Discharge - Discharge Plan Condition: Stable Disposition: HOME Patient Education Materials: Hypertension (ED), Viral Syndrome (ED), Upper Respiratory Infection (ED) Referrals: [facility] [place] [facility]ERR[facility] [Outside] - 1 Week
== END 2017-07-19 13:45 | disposition home or self-care (01) ==
LOC: UCEAST 12:01
DX: J06.9 Acute upper respiratory infection, unspecified (principal); I10 Essential (primary) hypertension; F17.210 Nicotine dependence, cigarettes, uncomplicated
CPT/HCPCS: 87502; 87651; 99211; G0463

== ENCOUNTER 2018-06-11 22:38 | Emergency (ER) | payer OTHER ==
--- NOTE | 2018-06-12 01:24 | ED ---
Lower Extremity - HPI Summary HPI Summary: Vision complains of left great toe pain and swelling after stubbing it on stretcher yesterday. Patient denies any other pain, injury or symptoms. Medical history is none. Denies history of gout. - History of Current Complaint Chief Complaint: EDExtremityLower Stated Complaint: LT FT INJURY Time Seen by Provider: 06/12/18 01:03 Hx Obtained From: Patient Mechanism Of Injury: Blunt Trauma Onset of Pain: Immediate, Hours Onset/Duration: Hours Severity Initially: Moderate Severity Currently: Moderate Pain Intensity: 6 Pain Scale Used: 0-10 Numeric Timing: Constant Location: Is Discrete @ Character Of Pain: Aching, Throbbing Associated Signs And Symptoms: Positive: Swelling, Redness Aggravating Factor(s): Standing, Ambulation, Movement, Weight Bearing Alleviating Factor(s): Rest Able to Bear Weight: Yes - Allergies/Home Medications Allergies/Adverse Reactions: Allergies Allergy/AdvReac Type Severity Reaction Status Date / Time No Known Allergies Allergy Verified 08/06/17 14:01 PMH/Surg Hx/FS Hx/Imm Hx Endocrine/Hematology History: Denies: Hx Diabetes, Hx Thyroid Disease Cardiovascular History: Reports: Hx Hypertension Denies: Hx Pacemaker/ICD Respiratory History: Denies: Hx Asthma, Hx Chronic Obstructive Pulmonary Disease (COPD) GI History: Denies: Hx Ulcer History: Denies: Hx Renal Disease Sensory History: Reports: Hx Contacts or Glasses Denies: Hx Hearing Aid Opthamlomology History: Reports: Hx Contacts or Glasses Psychiatric History: Denies: Hx Eating Disorder, Hx Panic Disorder, Hx of Violent Episodes Against Others - Surgical History Surgery Procedure, Year, and Place: DENIES Infectious Disease History: No Infectious Disease History: Denies: Hx Hepatitis, Hx Human Immunodeficiency Virus (HIV), History Other Infectious Disease, Traveled Outside the [place] in Last 30 Days - Family History Known Family History: Positive: Hypertension, Other - Cancers - include breast - Social History Alcohol Use: Weekly Substance Use Type: Reports: None Hx Tobacco Use: Yes Smoking Status (MU): Heavy Every Day Tobacco Smoker Type: Cigarettes Amount Used/How Often: 1 PPD Have You Smoked in the Last Year: Yes Review of Systems Constitutional: Negative Eyes: Negative ENT: Negative Cardiovascular: Negative Respiratory: Negative Gastrointestinal: Negative Genitourinary: Negative Musculoskeletal: Other Skin: Negative Neurological: Negative Psychological: Normal All Other Systems Reviewed And Are Negative: Yes Physical Exam - Summary Physical Exam Summary: Swelling to left great toe, mild erythema. No ecchymosis, extra warmth, deformity noted. Patient able to flex toe with pain. Mild tenderness with palpation of DIP joint. PMS intact. No evidence of gout. No history of gout. Triage Information Reviewed: Yes Vital Signs On Initial Exam: Initial Vitals Temp Pulse Resp BP Pulse Ox 97.8 F 89 20 172/112 96 06/11/18 22:43 06/11/18 22:43 06/11/18 22:43 06/11/18 22:43 06/11/18 22:43 Vital Signs Reviewed: Yes Appearance: Positive: Well-Appearing Skin: Positive: Warm Head/Face: Positive: Normal Head/Face Inspection Eyes: Positive: Normal Neck: Positive: Supple Respiratory/Lung Sounds: Positive: Clear to Auscultation Cardiovascular: Positive: Normal Abdomen Description: Positive: Nontender Musculoskeletal: Positive: Normal Neurological: Positive: Normal Psychiatric: Positive: Normal AVPU Assessment: Alert - Mona Coma Scale Best Eye Response: 4 - Spontaneous Best Motor Response: 6 - Obeys Commands Best Verbal Response: 5 - Oriented Coma Scale Total: 15 Diagnostics - Vital Signs Vital Signs Temp Pulse Resp BP Pulse Ox 06/11/18 22:43 97.8 F 89 20 172/112 96 - Laboratory Lab Statement: Any lab studies that have been ordered have been reviewed, and results considered in the medical decision making process. Lower Extremity Course/Dx - Course Course Of Treatment: Vision complains of left great toe pain and swelling after stubbing it on stretcher yesterday. Patient denies any other pain, injury or symptoms. Medical history is none. Denies history of gout. Physical exam: Swelling to left great toe, mild erythema. No ecchymosis, extra warmth, deformity noted. Patient able to flex toe with pain. Mild tenderness with palpation of DIP joint. PMS intact. No evidence of gout. No history of gout. Vital signs within normal limits. X-ray negative for acute process. No suggestion of gout. Likely diagnosis toe sprain. Patient great toe ananth taped to second toe. Advised patient take ibuprofen. Patient states he will take ibuprofen at home. - Diagnoses Provider Diagnoses: Sprain of toe, great, left Discharge - Sign-Out/Discharge Documenting (check all that apply): Patient Departure Patient Received Moderate/Deep Sedation with Procedure: No - Discharge Plan Condition: Stable Disposition: HOME Patient Education Materials: Swollen Joint (ED) Referrals: Benji Pappas DO [Primary Care Provider] - Additional Instructions: Ice, rest and ibuprofen for pain and swelling. Return to the ED for any new or worsening symptoms. - Billing Disposition and Condition Condition: STABLE Disposition: Home
[2018-06-12 01:53] VITALS: BP 138/82
== END 2018-06-12 01:30 | disposition home or self-care (01) ==
LOC: ED 22:38
DX: S93.502A Unspecified sprain of left great toe, initial encounter (principal); W22.8XXA Striking against or struck by other objects, initial encounter; Y92.9 Unspecified place or not applicable; Y99.0 Civilian activity done for income or pay; F17.210 Nicotine dependence, cigarettes, uncomplicated
CPT/HCPCS: 99282

== ENCOUNTER → 2018-06-29 12:38 | Emergency (ER) | payer OTHER ==
[~2018-06-29 12:38] MED LIST: Aspirin 81 mg CHEW TAB* 81 MG TAB.CHEW PO ONE; Hydrochlorothiazide TAB* 25 MG PO ONE
--- NOTE | 2018-06-29 13:38 | ED ---
HPI Chest Pain - HPI Summary HPI Summary: Pt is a 43 y/o M presenting to the ED with a chief complaint of chest pain onset about 1 hour ago. Pt is an employee at [employer] [facility] [place] and was on his way to the ICU when he suddenly felt warm, diaphoretic, and had chest pain. Pt states his coworkers told him his face turned pale and then very erythematous. Pt denies nausea or vomiting. Pt smokes and has a fhx of cardiac issues. - History of Current Complaint Chief Complaint: EDChestPainROMI Time Seen by Provider: 06/29/18 13:22 Hx Obtained From: Patient Onset/Duration: Started Hours Ago, Still Present Timing: Constant Initial Severity: Mild Current Severity: Mild Pain Intensity: 0 Pain Scale Used: 0-10 Numeric Chest Pain Location: Lower Sternal Chest Pain Radiates: No Character: Fluttering Aggravating Factor(s): Nothing Alleviating Factor(s): Spontaneous Resolution Associated Signs and Symptoms: Positive: Chest Pain, Diaphoresis. Negative: Nausea, Vomiting - Allergy/Home Medications Allergies/Adverse Reactions: Allergies Allergy/AdvReac Type Severity Reaction Status Date / Time No Known Allergies Allergy Verified 06/29/18 12:45 Home Medications: Home Medications hydroCHLOROthiazide [Hydrochlorothiazide] 25 mg PO DAILY 06/29/18 [History Confirmed 06/29/18] PMH/Surg Hx/FS Hx/Imm Hx Previously Healthy: Yes Endocrine/Hematology History: Denies: Hx Diabetes, Hx Thyroid Disease Cardiovascular History: Reports: Hx Hypertension Denies: Hx Pacemaker/ICD Respiratory History: Denies: Hx Asthma, Hx Chronic Obstructive Pulmonary Disease (COPD) GI History: Denies: Hx Ulcer History: Denies: Hx Renal Disease Sensory History: Reports: Hx Contacts or Glasses Denies: Hx Hearing Aid Opthamlomology History: Reports: Hx Contacts or Glasses Psychiatric History: Denies: Hx Eating Disorder, Hx Panic Disorder, Hx of Violent Episodes Against Others - Surgical History Surgery Procedure, Year, and Place: DENIES Infectious Disease History: No Infectious Disease History: Denies: Hx Hepatitis, Hx Human Immunodeficiency Virus (HIV), History Other Infectious Disease, Traveled Outside the [place] in Last 30 Days - Family History Known Family History: Positive: Cardiac Disease, Hypertension, Other - Cancers - include breast - Social History Alcohol Use: Weekly Hx Substance Use: No Substance Use Type: Reports: None Hx Tobacco Use: Yes Smoking Status (MU): Heavy Every Day Tobacco Smoker Type: Cigarettes Amount Used/How Often: 1 PPD Have You Smoked in the Last Year: Yes Review of Systems Positive: Skin Diaphoresis. Negative: Fever Positive: Chest Pain Negative: Vomiting, Nausea All Other Systems Reviewed And Are Negative: Yes Physical Exam - Summary Physical Exam Summary: Appearance: Well appearing, no pain distress Skin: warm, dry, reflects adequate perfusion Head/face: normal Eyes: EOMI, SADIE ENT: normal Neck: supple, non-tender Respiratory: CTA, breath sounds present Cardiovascular: RRR, pulses symmetrical Abdomen: non-tender, soft Musculoskeletal: normal, strength/ROM intact Neuro: normal, sensory motor intact, A&Ox3 Triage Information Reviewed: Yes Vital Signs On Initial Exam: Initial Vitals Temp Pulse Resp BP Pulse Ox 98.6 F 79 15 191/117 99 06/29/18 12:41 06/29/18 12:41 06/29/18 12:41 06/29/18 12:41 06/29/18 12:41 Vital Signs Reviewed: Yes Diagnostics - Vital Signs Vital Signs Temp Pulse Resp BP Pulse Ox 06/29/18 12:41 98.6 F 79 15 191/117 99 - Laboratory Result Diagrams: 06/29/18 13:44 06/29/18 13:44 Lab Statement: Any lab studies that have been ordered have been reviewed, and results considered in the medical decision making process. - Radiology Chest x-ray Radiology Interpretation Completed By: Radiologist Summary of Radiographic Findings: No active cardiopulmonary disease. ED physician has reviewed this report. - EKG 1305 Cardiac Rate: NL - 74bpm EKG Rhythm: Sinus Rhythm ST Segment: Normal Ectopy: None Chest Pain Course/Dx - Course Course Of Treatment: Pt is a 43 y/o M presenting to the ED with a chief complaint of chest pain onset about 1 hour ago. Pt reports diaphoresis, warmth, chest pain, and pallor. He smokes and has a fhx of cardiac issues. The pt denies nausea or vomiting. The chest x-ray shows no active cardiopulmonary disease. Pt will be sent home with a dx of atypical chest pain. - Diagnoses Provider Diagnoses: Atypical chest pain Discharge - Sign-Out/Discharge Documenting (check all that apply): Patient Departure Patient Received Moderate/Deep Sedation with Procedure: No - Discharge Plan Condition: Stable Disposition: HOME Referrals: Benji Pappas DO [Primary Care Provider] - Additional Instructions: Please follow up with your primary care provider in the next 3 days. Return to the ED with any new or worsening symptoms. - Attestation Statements Document Initiated by Navarroibe: Yes Documenting Scribe: Alaina Elliott Provider For Whom Vinh is Documenting (Include Credential): Chris Wells MD. Scribe Attestation: I, Alaina Elliott, scribed for Chris Wells MD. on 06/29/18 at 1655. Status of Scribe Document: Ready
[2018-06-29 13:54] LABS: ABS Basophils 0 10^3/ul (0-0.2); ABS Eosinophils 0.3 10^3/ul (0-0.6); ABS Lymphocytes 1.4 10^3/ul (1.0-4.8); ABS Monocytes 0.6 10^3/ul (0-0.8); ABS Neutrophils 2.9 10^3/ul (1.5-7.7); ABS Nucleated RBC 0 10^3/ul; Eosinophil % 5.4 %; Hematocrit 40 % (42-52); Hemoglobin 13.3 g/dl (14.0-18.0); Lymphocyte % 26.1 %; Mean Corpuscular HGB Conc 33 g/dl (31-36); Mean Corpuscular Hemoglobin 28 pg (27-31); Mean Corpuscular Volume 85 fL (80-94); Mean Platelet Volume 7.3 fL (7.4-10.4); Nucleated Red Blood Cells % 0.2; Platelet Count 262 10^3/ul (150-450); Red Blood Count 4.73 10^6/ul (4.00-5.40); Red Cell Distribution Width 14 % (10.5-15); White Blood Count 5.2 10^3/ul (3.5-10.8)
[2018-06-29 14:02] LABS: Activated Partial Thrombo Time 35.7 seconds (26.0-36.3); INR 0.9 (0.77-1.02)
[2018-06-29 14:10] LABS: Albumin 4.7 g/dL (3.2-5.2); Albumin/Globulin Ratio 1.4 (1-3); Calcium 9.8 mg/dL (8.6-10.3); EGFR African American 93.2 (>60); Globulin 3.3 g/dL (2-4); Potassium 4.1 mmol/L (3.5-5.0); Total Bilirubin 0.4 mg/dL (0.2-1.0)
[2018-06-29 17:13] VITALS: BP 156/100
== END | disposition home or self-care (01) ==
LOC: ED 12:38
DX: R07.89 Other chest pain (principal); R61 Generalized hyperhidrosis; I10 Essential (primary) hypertension; F17.210 Nicotine dependence, cigarettes, uncomplicated
CPT/HCPCS: 36415; 71045; 80053; 83880; 84484; 85025; 85610; 85730; 93005; 99283; A9270-GY

== ENCOUNTER 2018-08-07 15:52 | Emergency (ER) | payer OTHER ==
--- NOTE | 2018-08-07 18:27 | ED ---
Skin Complaint - HPI Summary HPI Summary: Pt is a 43 y/o male who presents to the ED c/o bleeding. On 07/29/18 he had an umbilical hernia repair at [facility]. Around 15:30 today he began to bleed from the incision site. Pt also c/o bruising to the abdomen and numbness. He denies any current pain. He denies the use of blood thinners, but has been using Ibuprofen and Tylenol. - History of Current Complaint Chief Complaint: EDGeneral Time Seen by Provider: 08/07/18 18:07 Stated Complaint: "INCISION OPENED 1 WEEK POST OP PER PT" Hx Obtained From: Patient Onset/Duration: Started Hours Ago - 15:30 today, Still Present Timing: Constant Current Severity: None Pain Intensity: 0 Pain Scale Used: 0-10 Numeric Skin Location: Abdomen - umbilicus Aggravating Symptom(s): Nothing Alleviating Symptom(s): Nothing Associated Signs & Symptoms: Numbness Related History: Other: - umbilical hernia surgery - Allergy/Home Medications Allergies/Adverse Reactions: Allergies Allergy/AdvReac Type Severity Reaction Status Date / Time No Known Allergies Allergy Verified 06/29/18 12:45 PMH/Surg Hx/FS Hx/Imm Hx Endocrine/Hematology History: Denies: Hx Diabetes, Hx Thyroid Disease Cardiovascular History: Reports: Hx Hypertension Denies: Hx Pacemaker/ICD Respiratory History: Denies: Hx Asthma, Hx Chronic Obstructive Pulmonary Disease (COPD) GI History: Reports: Other GI Disorders - umbilical hernia Denies: Hx Ulcer History: Denies: Hx Renal Disease Sensory History: Reports: Hx Contacts or Glasses Denies: Hx Hearing Aid Opthamlomology History: Reports: Hx Contacts or Glasses Psychiatric History: Denies: Hx Eating Disorder, Hx Panic Disorder, Hx of Violent Episodes Against Others - Surgical History Surgery Procedure, Year, and Place: DENIES Infectious Disease History: No Infectious Disease History: Denies: Hx Hepatitis, Hx Human Immunodeficiency Virus (HIV), History Other Infectious Disease, Traveled Outside the [place] in Last 30 Days - Family History Known Family History: Positive: Cardiac Disease, Hypertension, Other - Cancers - include breast - Social History Alcohol Use: Weekly Alcohol Amount: 4x a week Hx Substance Use: No Substance Use Type: Reports: None Hx Tobacco Use: Yes Smoking Status (MU): Heavy Every Day Tobacco Smoker Type: Cigarettes Amount Used/How Often: 1 PPD Have You Smoked in the Last Year: Yes Review of Systems Positive: Bruising, Other - bleeding from surgical site Positive: Numbness All Other Systems Reviewed And Are Negative: Yes Physical Exam - Summary Physical Exam Summary: Appearance: well appearing, no pain distress Skin: warm, dry, reflects adequate perfusion, scabbed wound on inferior portion of umbilicus with surrounding ecchymosis Head/face: normal Eyes: EOMI, SADIE ENT: mucous membranes moist Neck: supple, non-tender Respiratory: CTA, breath sounds present Cardiovascular: RRR, pulses symmetrical Abdomen: non-tender, soft Bowel Sounds: present Musculoskeletal: normal, strength/ROM intact Neuro: normal, sensory motor intact, A&Ox3 Triage Information Reviewed: Yes Vital Signs On Initial Exam: Initial Vitals Temp Pulse Resp BP Pulse Ox 96.1 F 78 16 200/107 98 08/07/18 15:56 08/07/18 15:56 08/07/18 15:56 08/07/18 15:56 08/07/18 15:56 Vital Signs Reviewed: Yes Diagnostics - Vital Signs Vital Signs Temp Pulse Resp BP Pulse Ox 08/07/18 15:56 96.1 F 78 16 200/107 98 - Laboratory Lab Statement: Any lab studies that have been ordered have been reviewed, and results considered in the medical decision making process. - Ultrasound No standard instances Ultrasound Interpretation Completed By: ED Physician Summary of Ultrasound Findings: US performed at bedside by ED physician: 2.25 cm in width, 1.16 cm in depth. Course/Dx - Course Course Of Treatment: nurse's notes reviewed. Patient with area of ecchymosis and induration near his umbilical surgical site. Dark blood out from it. Bedside ultrasound was performed and showed hematoma. With pressure on the area of this hematoma decompressed very tiny area in the left side of the wound. About half was decompressed and the patient was feeling better. It is relatively small in nature measuring about 2.26 x 1.16 cm. - Differential Diagnoses - Skin Complaint Differential Diagnoses: Other - Hematoma, abscess, seroma - Diagnoses Provider Diagnoses: Postoperative hematoma Discharge - Sign-Out/Discharge Documenting (check all that apply): Patient Departure - Discharge Patient Received Moderate/Deep Sedation with Procedure: No - Discharge Plan Condition: Improved Disposition: HOME Patient Education Materials: Hematoma (ED) Referrals: Benji Pappas DO [Primary Care Provider] - Additional Instructions: Warm compresses to the area. Follow up with your surgeon with a call on Thursday. Return if worse, new symptoms or other concerns. - Billing Disposition and Condition Condition: IMPROVED Disposition: Home - Attestation Statements Document Initiated by Vinh: Yes Documenting Scribe: Faviola Mckeon Provider For Whom Vinh is Documenting (Include Credential): Cory Cobos MD Scribe Attestation: I, Faviola Mckeon, scribed for Cory Cobos MD on 08/07/18 at 1918. Scribe Documentation Reviewed: Yes Provider Attestation: The documentation as recorded by the Faviola nunn accurately reflects the service I personally performed and the decisions made by me, Cory Cobos MD Status of Scribe Document: Viewed
[2018-08-07 18:46] VITALS: BP 163/102
== END 2018-08-07 18:45 | disposition home or self-care (01) ==
LOC: ED 15:52
DX: L76.32 Postprocedural hematoma of skin and subcutaneous tissue following other procedure (principal); Y83.9 Surgical procedure, unspecified as the cause of abnormal reaction of the patient, or of later complication, without mention of misadventure at the time of the procedure; I10 Essential (primary) hypertension; F17.210 Nicotine dependence, cigarettes, uncomplicated
CPT/HCPCS: 99282